=== PATIENT | male | born 2000 | race Caucasian/White ===

== ENCOUNTER 2023-05-17 08:13 | Emergency (ER) | payer BC ==
[2023-05-17 08:37] LABS: BASOPHILS ABSOLUTE AUTO 0.15 K/uL (0.00-0.20); BASOPHILS PERCENT AUTO 1.6 % (0.0-1.0); EOSINOPHILS ABSOLUTE AUTO 0.65 K/uL (0.00-0.45); EOSINOPHILS PERCENT AUTO 7.1 % (0.0-6.0); HEMATOCRIT 47.4 % (42.0-52.0); HEMOGLOBIN 16.1 g/dL (14.0-18.0); IMMATURE GRAN ABSOLUTE AUTO 0.02 K/uL (0.00-0.05); IMMATURE GRAN PERCENT AUTO 0.2 % (0.0-0.4); LYMPHOCYTES ABSOLUTE AUTO 2.51 K/uL (1.00-4.80); LYMPHOCYTES PERCENT AUTO 27.5 % (24.0-44.0); MEAN CORPUSCULAR HEMOGLOBIN 30.3 pg (28.0-32.0); MEAN CORPUSCULAR VOLUME 89.3 fL (83.0-99.0); MEAN PLATELET VOLUME 9.6 fL (9.4-12.4); MONOCYTES ABSOLUTE AUTO 0.88 K/uL (0.00-0.80); MONOCYTES PERCENT AUTO 9.6 % (0.0-8.0); NEUTROPHILS ABSOLUTE AUTO 4.92 K/uL (1.80-7.70); PLATELET COUNT,PLT 328 K/uL (150-400); RED BLOOD CELL COUNT 5.31 M/uL (4.52-5.90); WHITE BLOOD CELL COUNT,WBC 9.13 K/uL (3.9-11.3)
[2023-05-17] MEDS: Sodium Chloride 0.9% 2.5 ML Syringe FLUSH PRN (08:38)
[2023-05-17] MEDS: Sodium Chloride 0.9% 10 ML Syringe FLUSH PRN (08:38)
[2023-05-17] MEDS: Sodium Chloride 0.9% 1,000 ML IV ONE (08:38)
[2023-05-17] MEDS: Alum Hydro/Mag Hydro/Simeth XS 15 ML, Lidocaine 2% 5 ML PO ONE (08:39)
[2023-05-17 08:54] LABS: ALBUMIN 4.2 g/dL (3.4-5.0); BILIRUBIN TOTAL 0.3 mg/dL (0.2-1.0); CALCIUM 9.6 mg/dL (8.5-10.1); CARBON DIOXIDE,CO2 27.6 mmol/L (21.0-32.0); CREATININE 1.3 mg/dL (0.8-1.3); EST CRCL DRUG DOSING (CG) 83.33 mL/min; POTASSIUM,K 4.8 mmol/L (3.5-5.1); PROTEIN TOTAL,TP 8.4 g/dL (6.4-8.2)
[2023-05-17] MEDS: Pantoprazole 40 MG in Sodium Chloride 0.9% 10 ML IVPUSH ONE (09:07)
== END 2023-05-17 09:32 | disposition home or self-care (01) ==
LOC: MW.ED 08:13
DX: K29.70 Gastritis, unspecified, without bleeding (principal); Z91.011 Allergy to milk products
CPT/HCPCS: 36415; 80053; 83690; 85025; 96361; 96374; 99284; A9270; C9113; J3490; J7030

== ENCOUNTER 2024-01-29 11:23 | Day surgery (SDC) | payer BC ==
[2024-01-29] MEDS: Lactated Ringers 1,000 ML IV SCH (12:11)
[2024-01-29] MEDS ORDERED: Glycopyrrolate 0.2 MG/ML SDV ONE (12:49)
[2024-01-29] MEDS ORDERED: Lidocaine 2% 5 ML SDV ONE (12:49)
[2024-01-29] MEDS ORDERED: Propofol 200 MG/20 ML SDV ONE (12:50)
== END 2024-01-29 14:00 | disposition home or self-care (01) ==
LOC: MW.SDS 11:23
PROVIDERS: ATTEND Surgery
DX: K20.0 Eosinophilic esophagitis (principal); K25.9 Gastric ulcer, unspecified as acute or chronic, without hemorrhage or perforation; R13.10 Dysphagia, unspecified; Z91.011 Allergy to milk products
CPT/HCPCS: 43239; J1596; J2704; J7120; 00731; J3490